=== PATIENT | female | born 1980 | race Two or more races ===

== ENCOUNTER 2024-08-27 12:05 | Inpatient (IN) | payer MEDICAID, OTHER ==
[~2024-08-27] VITALS: Ht 154.9 cm; Wt 69.3 kg
--- NOTE | 2024-08-27 12:43 | ED.PDOC ---
Back pain HPI HPI Comments 44 y/o F, RUTH, presents to the ED for CC of back pain. Ems reports, patient is coming from home where she c/o lower lumbar back pain onset, x3days. Patient relays, that she heard a "pop" today (08/27/24) and has since been unable to ambulate. In route to the emergency department, patient was given 1 g of IV Tylenol with no relief of symptoms. Patient denies trauma, injury, fall, or lifting. No other symptoms or modifying factors present at this time. Chief Complaint: Back Pain Time Seen by MD: 12:35 Primary Care Provider: UNKNOWN Reviewed Notes: Nurses Notes, Web Site Project Manager Notes, Medications, Allergies Allergies: Coded Allergies: NO KNOWN ALLERGIES (Unverified , 08/27/24) Information Source: Patient, Emergency Med Personnel Mode of Arrival: EMS Timing: Days Duration: Since onset Location of Back pain: (B) Lumbar Severity: Moderate Prehospital treatment: Pain Meds Onset: Spontaneous History of: None Modifying Factors: Nothing Associated signs and symptoms: None Past Medical History PAST MEDICAL HISTORY: Denies Surgical History: Denies all surgeries [employer]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 Family History Family History: Unknown Social History Smoker: Non-Smoker Alcohol: Denies ETOH Use Drugs: Denies Drug Use Lives In: Home Constitutional: denies: chills, diaphoresis, fatigue, fever, malaise, sweats, weakness, others EENTM: denies: blurred vision, double vision, ear bleeding, ear discharge, ear drainage, ear pain, ear ringing, eye pain, eye redness, hearing loss, mouth pain, mouth swelling, nasal discharge, nose bleeding, nose congestion, nose pain, photophobia, tearing, throat pain, throat swelling, voice changes, others Respiratory: denies: cough, hemoptysis, orthopnea, SOB at rest, shortness of breath, SOB with excertion, stridor, wheezing, others Cardiovascular: denies: chest pain, dizzy spells, diaphoresis, Dyspnea on exertion, edema, irregular heart beat, left arm pain, lightheadedness, palpitations, PND, syncope, others Gastrointestinal: denies: abdomen distended, abdominal pain, blood streaked bowels, constipated, diarrhea, dysphagia, difficulty swallowing, hematemesis, melena, nausea, poor appetite, poor fluid intake, rectal bleeding, rectal pain, vomiting, others Genitourinary: denies: abnormal vagina bleeding, burning, dyspareunia, dysuria, flank pain, frequency, hematuria, incontinence, pain, , vagina discharge, urgency, others Neurological: denies: dizziness, fainting, headache, left sided numbness, left sided weakness, numbness, paresthesia, pre-existing deficit, right sided numbness, right sided weakness, seizure, speech problems, tingling, tremors, weakness, others Musculoskeletal: reports: back pain; denies: gout, joint pain, joint swelling, muscle pain, muscle stiffness, neck pain, others Integumetry: denies: bruises, change in color, change in hair/nails, dryness, laceration, lesions, lumps, rash, wounds, others Allergic/Immunocompromised: denies: Difficulty Healing, Frequent Infections, Hives, Itching, others Hematologic/Lymphatic: denies: anemia, blood clots, easy bleeding, easy bruising, swollen glands, others Endocrine: denies: excessive hunger, excessive sweating, excessive thirst, excessive urination, flushing, intolerance to cold, intolerance to heat, unexplained weight gain, unexplained weight loss, others Psychiatric: denies: anxiety, bipolar disorder, depression, hopeless, panic disorder, schizophrenia, sleepless, suicidal, others All Other Systems: Reviewed and Negative Physical Exam General Appearance: No Apparent Distress, Normal HEENT: Normal ENT Inspection, Pharynx Normal Neck: Full Range of Motion, Non-Tender, Normal, Normal Inspection Respiratory: Chest Non-Tender, Lungs Clear, No Accessory Muscle Use, No Respiratory Distress, Normal Breath Sounds Cardiovascular: No Edema, No Murmur, No Gallop, Normal Peripheral Pulses, Regular Rate/Rhythm Breast Exam: Deferred Gastrointestinal: No Organomegaly, Non Tender, No Pulsatile Mass, Normal Bowel Sounds, Soft Genitalia: Deferred Pelvic: Deferred Rectal: Deferred Extremities: No calf tenderness, Normal capillary refill, Normal inspection, Normal range of motion, Non-tender, No pedal edema Musculoskeletal : Apperance: Normal Neurologic: Alert, java tech lead II-XII nml as Tested, No Motor Deficits, Normal Affect, Normal Mood, No Sensory Deficits Cerebellar Function: Normal Reflexes: Normal Skin: Dry, Normal Color, Warm Lymphatic: No Adenopathy Was a procedure done? Was a procedure done?: No Back Pain Differential Dx Differential Diagnosis: Musculoskeletal Pain, Strain, Urinary Obstruction, Urolithiasis X-Ray, Labs, Meds, VS Vital Signs Date Time Temp Pulse Resp B/P (MAP) Pulse Ox O2 Delivery O2 Flow Rate FiO2 08/27/24 12:12 97.6 84 17 145/82 (103) 98 97.6 Lab Test 08/27/24 16:19 08/27/24 13:34 Range/Units Urine Color Light-yellow Yellow Urine Clarity Clear Clear Urine pH 6.5 5.0-9.0 Urine Specific [place] 1.014 1.001-1.035 Urine Protein Negative Negative Urine Ketones Negative Negative Urine Blood 3+ H Negative /uL Urine Nitrite Negative Negative Urine Bilirubin Negative Negative Urine Urobilinogen Normal Negative mg/dL Urine Leukocyte Esterase Negative Negative /uL Urine RBC 6 0 - 4 /hpf Urine Microscopic WBC 1 0-5 /HPF Urine Squamous Epithelial Cells Few <5 /hpf Urine Bacteria None seen None Seen /hpf Urine Glucose Normal Normal mg/dL White Blood Count 6.5 4.4-10.8 10^3/uL Red Blood Count 4.74 4.0-5.20 10^6/uL Hemoglobin 14.4 12.2-16.2 g/dL Hematocrit 42.2 36.0-46.0 % Mean Corpuscular Volume 88.9 80.0-100.0 fL Mean Corpuscular Hemoglobin 30.4 28.0-32.0 pg Mean Corpuscular Hemoglobin Concent 34.2 32.0-36.0 g/dL Red Cell Distribution Width 13.8 11.8-14.3 % Platelet Count 269 140-450 10^3/uL Mean Platelet Volume 7.6 6.9-10.8 fL Neutrophils (%) (Auto) 67.9 37.0-80.0 % Lymphocytes (%) (Auto) 28.0 10.0-50.0 % Monocytes (%) (Auto) 3.4 0.0-12.0 % Eosinophils (%) (Auto) 0.4 0.0-7.0 % Basophils (%) (Auto) 0.3 0.0-2.0 % Neutrophils # (Auto) 4.4 1.6-8.6 10 ^3/uL Lymphocytes # (Auto) 1.8 0.4-5.4 10 ^3/uL Monocytes # (Auto) 0.2 0-1.3 10 ^3/uL Eosinophils # (Auto) 0 0-0.8 10 ^3/uL Basophils # (Auto) 0 0-0.2 10 ^3/uL Nucleated Red Blood Cells 0.2 % Sodium Level 138 136-145 mmol/L Potassium Level 3.8 3.5-5.1 mmol/L Chloride Level 106 98-107 mmol/L Carbon Dioxide Level 23 20-31 mmol/L Anion Gap 9 5-15 Blood Urea Nitrogen 13 9-23 mg/dL Creatinine 0.68 0.550-1.02 mg/dL Glomerular Filtration Rate Calc 109 >90 mL/min BUN/Creatinine Ratio 19.1 10.0-20.0 Serum Glucose 108 H 74-106 mg/dL Calcium Level 9.3 8.7-10.4 mg/dL Current Medications Medications (Trade) Dose Ordered Sig/Jim Route Start Time Stop Time Status Last Admin Cyclobenzaprine HCl (Flexeril Tablet) 10 mg ONCE ONCE PO 08/27/24 13:15 08/27/24 13:16 DC 08/27/24 16:44 Acetaminophen/ Hydrocodone Bitart ([place] 5/325MG Tab) 1 tab ONCE ONCE PO 08/27/24 13:15 08/27/24 13:16 DC 08/27/24 16:44 [place] [address] Ph: [phone] DIAGNOSTIC IMAGING Diagnostic Imaging Report : [id number] Signed PATIENT: CHRISTIANO SALMERONCCT: [id number] UNIT: [id number] : 1980 LOC: ER ROOM / BED: / AGE / SEX: 44 / F ADM STATUS: REG ER SERVICE 1303 ORDERING PHYSICIAN: SOL MICHAELS MD PROCEDURE(s): LUMB2 - LUMBAR SPINE 3 VIEW REASON: lower back pain ORDER NUMBER(s): [id number], ACCESSION NUMBER(s): [id number] INDICATION: lower back pain COMPARISON: None TECHNIQUE: 3 views of the lumbar spine were obtained. FINDINGS: The lumbar vertebral alignment is normal. The intervertebral disc spaces are well-maintained. No significant facet arthropathy is noted. No acute fracture, vertebral compression deformity or aggressive osseous lesions. The paravertebral soft tissues are grossly unremarkable. IMPRESSION: No acute fracture. ATED BY: OBDULIA FREITAS MD DICTATED DATE/TIME: 08/27/241343 SIGNED BY: OBDULIA FREITAS MD SIGNED DATE/TIME: 08/27/241343 CC: Time of 1ST Reevaluation: 13:05 Reevaluation 1ST: Unchanged Patient Education/Counseling: Diagnosis, Treatment Family Education/Counseling: No Family Present SEPSIS Sepsis Screen Date sepsis recognized/suspect: Aug 27, 2024 Time Sepsis recognized/suspect: 1211 Recent Procedure: No On Antibiotic Therapy: No Respiratory Rate >20: No Heart Rate >90: No Temp<36 C (96.8 F) or >38.3 C: No SBP <90 or MAP <65 mmHG: No New Acute Mental Status Change: No Is the patient on CPAP, BIPAP,: No Physician Orders Lumbar Spine 3 View (08/27/24 13:03) Vital Signs Date Time Temp Pulse Resp B/P (MAP) Pulse Ox O2 Delivery O2 Flow Rate FiO2 08/27/24 12:12 97.6 84 17 145/82 (103) 98 97.6 Laboratory Tests Test 08/27/24 13:34 White Blood Count 6.5 10^3/uL (4.4-10.8) Medications Medications Dose Ordered Sig/Jim Route Start Time Stop Time Status Last Admin Dose Admin Acetaminophen/ Hydrocodone Bitart 1 tab ONCE ONCE PO 08/27/24 13:15 08/27/24 13:16 DC 08/27/24 16:44 Cyclobenzaprine HCl 10 mg ONCE ONCE PO 08/27/24 13:15 08/27/24 13:16 DC 08/27/24 16:44 Departure 1 Departure Time of Disposition: 17:05 (Patient with severe intractable lumbar pain and inability to ambulate. X-ray is benign. We will admit patient for further workup and expert consultation) Impression: Primary Impression: Lower back pain Qualified Codes: M54.42 - Lumbago with sciatica, left side; M54.41 - Lumbago with sciatica, right side Additional Impression: Unable to ambulate Disposition: ADMITTED INPATIENT Admit to: Med Surg Condition: Serious Critical Care Note Critical Care Time?: Yes Critical care comment: Intractable back pain Authorized and Performed by: Sol Michaels MD Total critical care time: Approximately 37 minutes Due to a high probability of clinically significant, life threatening deterioration, the patient required my highest level of preparedness to intervene emergently and I personally spent this critical care time directly and personally managing the patient. This critical care time included obtaining a history; examining the patient; pulse oximetry; ordering and review of studies; arranging urgent treatment with development of a management plan; evaluation of patient's response to treatment; frequent reassessment; and, discussions with other providers. This critical care time was performed to assess and manage the high probability of imminent, life-threatening deterioration that could result in multi-organ failure. It was exclusive of separately billable procedures and treating other p atients and teaching time. Please see my other sections and the rest of the note for further information on patient assessment and treatment. Stability Stability form required: No Heart Score Heart Score: Heart Score Response (Comments) Value History N/A 0 EKG N/A 0 Age N/A 0 Risk Factors N/A 0 Troponin N/A 0 Total 0 I personally scribed for SOL MICHAELS MD ([email or web address]) on 08/27/24 at 12:43. Electronically submitted by Shawna Chapa ([email or web address]). I personally scribed for SOL MICHAELS MD ([email or web address]) on 08/27/24 at 14:47. Electronically submitted by Shawna Chapa ([email or web address]). SOL MICHAELS MD Aug 27, 2024 12:43
--- NOTE | 2024-08-27 13:46 | DVH ---
INDICATION: lower back pain COMPARISON: None TECHNIQUE: 3 views of the lumbar spine were obtained. FINDINGS: The lumbar vertebral alignment is normal. The intervertebral disc spaces are well-maintained. No significant facet arthropathy is noted. No acute fracture, vertebral compression deformity or aggressive osseous lesions. The paravertebral soft tissues are grossly unremarkable. IMPRESSION: No acute fracture.
[2024-08-27 13:48] LABS: Hematocrit 42.2 % (36.0-46.0); Hemoglobin 14.4 g/dL (12.2-16.2); Mean Corpuscular Hemoglobin 30.4 pg (28.0-32.0); Mean Corpuscular Volume 88.9 fL (80.0-100.0); Nucleated Red Blood Cells % 0.2 %
[2024-08-27 13:56] LABS: Chloride 106 mmol/L (98-107); Potassium 3.8 mmol/L (3.5-5.1); Sodium 138 mmol/L (136-145)
[2024-08-27 13:57] LABS: Anion Gap 9 (5-15); Carbon Dioxide 23 mmol/L (20-31)
[2024-08-27 13:58] LABS: Calcium 9.3 mg/dL (8.7-10.4)
[2024-08-27 14:02] LABS: BUN/Creatinine Ratio 19.1 (10.0-20.0); Blood Urea Nitrogen 13 mg/dL (9-23)
[2024-08-27 14:05] LABS: Glucose 108 mg/dL (74-106)
[2024-08-27 16:33] LABS: Urine Protein, UAD Negative (Negative)
[2024-08-27] MEDS: HYDROcodone-ACET 5/325MG TAB PO ONE (16:44)
[2024-08-27] MEDS: CYCLOBENZAPRINE HCL 10 MG TAB PO ONE (16:44)
[2024-08-27] MEDS: SODIUM CHLORIDE 0.9% 1,000 ML IV ONE (18:29)
[2024-08-27] MEDS: ONDANSETRON HCL 4 MG/2 ML VIAL IV ONE (18:30)
[2024-08-27] MEDS: MORPHINE SULFATE 4 MG/ML SYR/VIAL IV ONE (18:31)
[2024-08-27] MEDS ORDERED: ONDANSETRON HCL 4 MG/2 ML VIAL IV PRN (19:45)
[2024-08-27] MEDS ORDERED: ACETAMINOPHEN 325 MG TAB PO PRN (19:45)
[2024-08-27] MEDS ORDERED: MORPHINE SULFATE INJ 2 MG/ml SYRG IV PRN (19:45)
[2024-08-27] MEDS ORDERED: LIDOCAINE 5% TOPICAL PATCH TOP ONE (19:45)
[2024-08-27] MEDS ORDERED: HYDROcodone-ACET 5/325MG TAB PO PRN (19:45)
[2024-08-27] MEDS: LIDOCAINE 5% TOPICAL PATCH TOP SCH (20:00)
[2024-08-27] MEDS ORDERED: TEMAZEPAM 15 MG CAP PO PRN (22:00)
--- NOTE | 2024-08-27 22:16 | DVHHP2 ---
History of Present Illness Reason for Visit: Lower back pain History of Present Illness 44-year-old female presents for evaluation of lower back pain. The patient reports a three day history of lower back pain. She states the pain started after she open her refrigerator door and turned. Denies any trauma to the area no falls. Patient states having difficulty ambulating due to the pain. Denies lower extremity numbness or tingling sensation. Past Medical History Denies Past Surgical History Denies Family History Noncontributory Smoke: No ALCOHOL: none Drugs: None Lives: with Family Review of Systems Review of Systems Review of systems are currently negative otherwise addressed in HPI. Allergies: Coded Allergies: NO KNOWN ALLERGIES (Unverified , 08/27/24) Medications Current Medications Medications Dose Ordered Sig/Jim Route Start Time Stop Time Status Last Admin Dose Admin Cyclobenzaprine HCl 5 mg Q8HPRN PRN PO 08/27/24 19:45 Lidocaine 1 patch Q24H TOP 08/27/24 20:00 Acetaminophen/ Hydrocodone Bitart 1 tab Q4HP PRN PO 08/27/24 19:45 Temazepam 15 mg QHSP PRN PO 08/27/24 22:00 Ondansetron HCl 4 mg Q4HP PRN IV 08/27/24 19:45 Acetaminophen 650 mg Q6HP PRN PO 08/27/24 19:45 Morphine Sulfate 2 mg Q6HPRN PRN IV 08/27/24 19:45 Exam Vital Signs Vital Signs Date Time Temp Pulse Resp B/P (MAP) Pulse Ox O2 Delivery O2 Flow Rate FiO2 08/27/24 20:00 74 21 118/66 (83) 97 08/27/24 18:12 98.7 98.7 08/27/24 18:12 Room Air* 0 21 Exam Gen: 46-year-old female in mild distress Skin: Warm, dry, normal color and texture, no rash. HEENT: Normocephalic atraumatic, mucous membranes moist and pink. Neck: Cervical and supraclavicular nodes normal without enlargement, trachea is midline, thyroid gland is normal without masses. Pulmonary: Clear to auscultation and percussion bilaterally. Cardiac: Regular rate and rhythm. No murmur Abdomen: Soft, nontender, nondistended, bowel sounds present all 4 quadrants, no guarding, no rigidity, no organomegaly. Extremities: No cyanosis, clubbing, no edema Neuro: Cranial nerves II through XII grossly intact, normal affect and speech, no focal motor deficits. Labs/Xrays ORDERING PHYSICIAN: SOL ALEXANDER MD PROCEDURE(s): LUMB2 - LUMBAR SPINE 3 VIEW REASON: lower back pain ORDER NUMBER(s): [id number], ACCESSION NUMBER(s): [id number] INDICATION: lower back pain COMPARISON: None TECHNIQUE: 3 views of the lumbar spine were obtained. FINDINGS: The lumbar vertebral alignment is normal. The intervertebral disc spaces are well-maintained. No significant facet arthropathy is noted. No acute fracture, vertebral compression deformity or aggressive osseous lesions. The paravertebral soft tissues are grossly unremarkable. IMPRESSION: No acute fracture. Labs Test 08/27/24 16:19 08/27/24 13:34 Range/Units Urine Color Light-yellow Yellow Urine Clarity Clear Clear Urine pH 6.5 5.0-9.0 Urine Specific [place] 1.014 1.001-1.035 Urine Protein Negative Negative Urine Ketones Negative Negative Urine Blood 3+ H Negative /uL Urine Nitrite Negative Negative Urine Bilirubin Negative Negative Urine Urobilinogen Normal Negative mg/dL Urine Leukocyte Esterase Negative Negative /uL Urine RBC 6 0 - 4 /hpf Urine Microscopic WBC 1 0-5 /HPF Urine Squamous Epithelial Cells Few <5 /hpf Urine Bacteria None seen None Seen /hpf Urine Glucose Normal Normal mg/dL White Blood Count 6.5 4.4-10.8 10^3/uL Red Blood Count 4.74 4.0-5.20 10^6/uL Hemoglobin 14.4 12.2-16.2 g/dL Hematocrit 42.2 36.0-46.0 % Mean Corpuscular Volume 88.9 80.0-100.0 fL Mean Corpuscular Hemoglobin 30.4 28.0-32.0 pg Mean Corpuscular Hemoglobin Concent 34.2 32.0-36.0 g/dL Red Cell Distribution Width 13.8 11.8-14.3 % Platelet Count 269 140-450 10^3/uL Mean Platelet Volume 7.6 6.9-10.8 fL Neutrophils (%) (Auto) 67.9 37.0-80.0 % Lymphocytes (%) (Auto) 28.0 10.0-50.0 % Monocytes (%) (Auto) 3.4 0.0-12.0 % Eosinophils (%) (Auto) 0.4 0.0-7.0 % Basophils (%) (Auto) 0.3 0.0-2.0 % Neutrophils # (Auto) 4.4 1.6-8.6 10 ^3/uL Lymphocytes # (Auto) 1.8 0.4-5.4 10 ^3/uL Monocytes # (Auto) 0.2 0-1.3 10 ^3/uL Eosinophils # (Auto) 0 0-0.8 10 ^3/uL Basophils # (Auto) 0 0-0.2 10 ^3/uL Nucleated Red Blood Cells 0.2 % Sodium Level 138 136-145 mmol/L Potassium Level 3.8 3.5-5.1 mmol/L Chloride Level 106 98-107 mmol/L Carbon Dioxide Level 23 20-31 mmol/L Anion Gap 9 5-15 Blood Urea Nitrogen 13 9-23 mg/dL Creatinine 0.68 0.550-1.02 mg/dL Glomerular Filtration Rate Calc 109 >90 mL/min BUN/Creatinine Ratio 19.1 10.0-20.0 Serum Glucose 108 H 74-106 mg/dL Calcium Level 9.3 8.7-10.4 mg/dL SEPSIS Sepsis Screen Date sepsis recognized/suspect: Aug 27, 2024 Time Sepsis recognized/suspect: 1811 Recent Procedure: No On Antibiotic Therapy: No Respiratory Rate >20: No Heart Rate >90: No Temp<36 C (96.8 F) or >38.3 C: No SBP <90 or MAP <65 mmHG: No New Acute Mental Status Change: No Is the patient on CPAP, BIPAP,: No Physician Orders Lumbar Spine Wo Contrast (08/27/24 19:31) Cyclobenzaprine Tablet (Flexeril Tablet) (08/27/24 19:45) Admit (08/27/24 19:31) Hydrocodone-Acet 5/325mg Tab ([place] (08/27/24 19:45) Temazepam (Restoril) (08/27/24 22:00) Ondansetron Hcl (Zofran) (08/27/24 19:45) Condition: Stable (08/27/24 19:31) Acetaminophen Tablet (Tylenol Tablet) (08/27/24 19:45) Bedrest With Bathroom Privileg (08/27/24 19:31) Morphine Sulfate Injection (08/27/24 19:45) Regular Diet (08/28/24 Breakfast) Lidocaine 5% Topical Patch (Lidoderm 5% (08/27/24 20:00) Vital Signs Date Time Temp Pulse Resp B/P (MAP) Pulse Ox O2 Delivery O2 Flow Rate FiO2 08/27/24 20:00 74 21 118/66 (83) 97 08/27/24 18:31 73 12 120/69 08/27/24 18:12 98.7 73 12 120/69 (86) 98 98.7 08/27/24 18:12 Room Air* 0 21 Laboratory Tests Test 08/27/24 13:34 White Blood Count 6.5 10^3/uL (4.4-10.8) Medications Medications Dose Ordered Sig/Jim Route Start Time Stop Time Status Last Admin Dose Admin Acetaminophen/ Hydrocodone Bitart 1 tab ONCE ONCE PO 08/27/24 13:15 08/27/24 13:16 DC 08/27/24 16:44 1 TAB Cyclobenzaprine HCl 10 mg ONCE ONCE PO 08/27/24 13:15 08/27/24 13:16 DC 08/27/24 16:44 10 MG Morphine Sulfate 4 mg ONCE ONCE IV 08/27/24 17:15 08/27/24 17:57 DC 08/27/24 18:31 4 MG Ondansetron HCl 4 mg ONCE ONCE IV 08/27/24 17:15 08/27/24 17:58 DC 08/27/24 18:30 4 MG Sodium Chloride 1,000 ml @ 1,000 mls/hr Q1H ONCE IV 08/27/24 17:15 08/27/24 18:14 DC 08/27/24 18:29 1,000 MLS/HR Assessment/Plan Assessment/Plan Assessment Lower back pain Plan Admit the patient to [facility] to the hospitalist Pain management Lumbar MRI pending Continue treatment per orders. Plan discussed with: Patient My Orders Orders - RICKY RAMIREZ AGACNP Procedure Category Date Status Time Lumbar Spine Wo MRI 08/27/24 Logged Contrast 19:31 Cyclobenzaprine PHA 08/27/24 In Process Tablet (Flexeril 19:45 Admit ADMIT 08/27/24 Transmitted 19:31 Hydrocodone-Acet PHA 08/27/24 In Process 5/325mg Tab ([place] 19:45 Temazepam (Restoril) PHA 08/27/24 In Process 22:00 Ondansetron Hcl PHA 08/27/24 In Process (Zofran) 19:45 Condition: Stable KELBY 08/27/24 In Process 19:31 Acetaminophen Tablet PHA 08/27/24 In Process (Tylenol Tablet) 19:45 Bedrest With Bathroom KELBY 08/27/24 In Process Privileg 19:31 Morphine Sulfate PHA 08/27/24 In Process Injection 19:45 Regular Diet DIET 08/28/24 Transmitted Breakfast Lidocaine 5% Topical PHA 08/27/24 In Process Patch (Lidoderm 5% 20:00 Date of Service: Aug 27, 2024 Billing Provider: RICKY RAMIREZ Common Visit Codes: [id number] INP/OBS CARE (MOD) RICKY RAMIREZ Aug 27, 2024 22:16
[2024-08-28] VITALS (7 sets, daily range): BP systolic 93–128; BP diastolic 63–84; PULSE 67–78; RESP 15–20; TEMP 97.6–98.6; O2SAT 97–99
[2024-08-28] MEDS: CYCLOBENZAPRINE HCL 10 MG TAB PO PRN (08:39)
--- NOTE | 2024-08-28 11:33 | DVH ---
CLINICAL INFORMATION: 44 years old, Female; lower back pain. TECHNIQUE: Multisequence multiplanar MRI images of the lumbar spine were obtained without contrast. COMPARISON: Radiographs dated 08/27/2024. INTERPRETATION: Straightening of the normal lumbar lordosis. No significant spondylolisthesis. Vert ebral body heights are maintained. Posterior elements are intact. No focal suspicious marrow signa l abnormality. Visualized spinal cord and cauda equina are within normal limits. The conus medullar is is appropriate in signal at the L1 level. Paraspinal soft tissues are unremarkable. L1-L2: No significant disc/facet abnormality. No significant spinal canal or neural foraminal stenos is. L2-L3: No significant disc/facet abnormality. No significant spinal canal or neural foraminal stenos is. L3-L4: Disc desiccation. No significant spinal canal stenosis or neural foraminal stenosis. Small bi lateral facet joint effusions. L4-L5: Disc desiccation. Small annular fissure. Minimal disc bulge without significant spinal canal stenosis. Facet hypertrophy with mild left neural foraminal stenosis. Small bilateral facet joint eff usions. L5-S1: Disc desiccation with moderate disc space narrowing. Mild disc bulge mildly flattening the ve ntral aspect of the thecal sac. Small annular fissure. Facet hypertrophy with moderate bilateral neur al foraminal stenoses. IMPRESSION: 1. Degenerative disc disease and facet disease in the lumbar spine with associated neural foraminal s tenoses as described above. No significant spinal canal stenosis. 2. Straightening of the normal lumbar lordosis without significant spondylolisthesis. 3. Additional findings as described above.
--- NOTE | 2024-08-28 13:39 | DVHPN2 ---
Reviewed: Care Plan, H&P, Labs, Medications, Previous Orders, Radiology Changes from previous H/P or p: No Changes Objective Vitals Vital Signs Date Time Temp Pulse Resp B/P (MAP) Pulse Ox O2 Delivery O2 Flow Rate FiO2 08/28/24 12:36 98.4 68 16 120/80 (93) 97 98.4 08/28/24 07:30 Room Air* 0 21 Intake/Output Intake and Output 08/28/24 07:00 Intake Total 891 ml Balance 891 ml Intake Oral 891 ml # Voids 4 Medications Current Medications Medications Dose Ordered Sig/Jim Route Start Time Stop Time Status Last Admin Dose Admin Cyclobenzaprine HCl 5 mg Q8HPRN PRN PO 08/27/24 19:45 08/28/24 08:39 5 MG Lidocaine 1 patch Q24H TOP 08/27/24 20:00 Acetaminophen/ Hydrocodone Bitart 1 tab Q4HP PRN PO 08/27/24 19:45 Temazepam 15 mg QHSP PRN PO 08/27/24 22:00 Ondansetron HCl 4 mg Q4HP PRN IV 08/27/24 19:45 Acetaminophen 650 mg Q6HP PRN PO 08/27/24 19:45 Morphine Sulfate 2 mg Q6HPRN PRN IV 08/27/24 19:45 Laboratory Results Laboratory Tests 08/27/24 13:34 Chemistry Test 08/27/24 13:34 Calcium Level 9.3 mg/dL (8.7-10.4) Urinalysis Test 08/27/24 16:19 Urine Color Light-yellow (Yellow) Urine Clarity Clear (Clear) Urine pH 6.5 (5.0-9.0) Urine Specific [place] 1.014 (1.001-1.035) Urine Protein Negative (Negative) Urine Ketones Negative (Negative) Urine Blood 3+ /uL (Negative) H Urine Nitrite Negative (Negative) Urine Bilirubin Negative (Negative) Urine Urobilinogen Normal mg/dL (Negative) Urine Leukocyte Esterase Negative /uL (Negative) Urine RBC 6 /hpf (0 - 4) Urine Microscopic WBC 1 /HPF (0-5) Urine Squamous Epithelial Cells Few /hpf (<5) Urine Bacteria None seen /hpf (None Seen) Urine Glucose Normal mg/dL (Normal) Labs and/or images reviewed: Labs reviewed by me, Image(s) reviewed by me Assessment/Plan Assessment/Plan Acute lower back pain Morphine [place] lidocaine patch MRI LS spine shows degenerative changes, no fracture Acute Muscle strain Plan discussed with: Patient Date of Service: Aug 28, 2024 Billing Provider: ARIELLA CARDENAS MD Common Visit Codes: [id number] INP/OBS CARE(HIGH) ARIELLA CARDENAS MD Aug 28, 2024 13:39
[2024-08-29 01:00] VITALS: BP 109/67; PULSE 62; RESP 20; TEMP 98; O2SAT 96
[2024-08-29 05:00] VITALS: BP 109/75; PULSE 58; RESP 22; TEMP 97.9; O2SAT 96
[2024-08-29 08:05] VITALS: PULSE 82; RESP 16; O2SAT 98
[2024-08-29 09:00] VITALS: BP 114/77; PULSE 82; RESP 16; TEMP 98.1; O2SAT 98
[2024-08-29] MEDS ORDERED: METH-1182 PO (12:24)
[2024-08-29] MEDS ORDERED: HYDR-4902 PO (12:24)
--- NOTE | 2024-08-29 12:26 | DVHPN2 ---
Reviewed: Care Plan, H&P, Labs, Medications, Previous Orders, Radiology Changes from previous H/P or p: No Changes Objective Vitals Vital Signs Date Time Temp Pulse Resp B/P (MAP) Pulse Ox O2 Delivery O2 Flow Rate FiO2 08/29/24 09:00 98.1 82 16 114/77 (89) 98 98.1 08/29/24 08:05 Room Air* 0 21 Intake/Output Intake and Output 08/29/24 07:00 Intake Total 1250 ml Balance 1250 ml Intake Oral 1250 ml # Voids 6 # Bowel Movements 1 Medications Current Medications Medications Dose Ordered Sig/Jim Route Start Time Stop Time Status Last Admin Dose Admin Cyclobenzaprine HCl 5 mg Q8HPRN PRN PO 08/27/24 19:45 08/28/24 23:18 5 MG Lidocaine 1 patch Q24H TOP 08/27/24 20:00 Temazepam 15 mg QHSP PRN PO 08/27/24 22:00 Ondansetron HCl 4 mg Q4HP PRN IV 08/27/24 19:45 Acetaminophen 650 mg Q6HP PRN PO 08/27/24 19:45 Morphine Sulfate 2 mg Q6HPRN PRN IV 08/27/24 19:45 Tramadol HCl 50 mg Q6HP PRN PO 08/28/24 13:45 08/29/24 11:53 50 MG Laboratory Results Laboratory Tests 08/27/24 13:34 Urinalysis Test 08/27/24 16:19 Urine Color Light-yellow (Yellow) Urine Clarity Clear (Clear) Urine pH 6.5 (5.0-9.0) Urine Specific [place] 1.014 (1.001-1.035) Urine Protein Negative (Negative) Urine Ketones Negative (Negative) Urine Blood 3+ /uL (Negative) H Urine Nitrite Negative (Negative) Urine Bilirubin Negative (Negative) Urine Urobilinogen Normal mg/dL (Negative) Urine Leukocyte Esterase Negative /uL (Negative) Urine RBC 6 /hpf (0 - 4) Urine Microscopic WBC 1 /HPF (0-5) Urine Squamous Epithelial Cells Few /hpf (<5) Urine Bacteria None seen /hpf (None Seen) Urine Glucose Normal mg/dL (Normal) Labs and/or images reviewed: Labs reviewed by me, Image(s) reviewed by me Assessment/Plan Assessment/Plan Acute lower back pain Morphine [place] lidocaine patch MRI LS spine shows degenerative changes, no fracture Acute Muscle strain Plan discussed with: Patient My Orders Orders - ARIELLA CARDENAS MD Procedure Category Date Status Time Tramadol Hcl (Ultram) PHA 08/28/24 In Process 13:45 Date of Service: Aug 29, 2024 Billing Provider: ARIELLA CARDENAS MD Common Visit Codes: [id number] INP/OBS CARE(HIGH) ARIELLA CARDENAS MD Aug 29, 2024 12:26
--- NOTE | 2024-08-29 12:30 | DVHDS2 ---
Discharge Summary Date of Admission Aug 27, 2024 at 19:31 Date of Discharge: Aug 29, 2024 Admitting Diagnosis Acute exacerbation of chronic low back pain Labs/Diagnostic Data: Laboratory Results Test 08/27/24 16:19 08/27/24 13:34 Urine Color Light-yellow (Yellow) Urine Clarity Clear (Clear) Urine pH 6.5 (5.0-9.0) Urine Specific [place] 1.014 (1.001-1.035) Urine Protein Negative (Negative) Urine Ketones Negative (Negative) Urine Blood 3+ /uL (Negative) Urine Nitrite Negative (Negative) Urine Bilirubin Negative (Negative) Urine Urobilinogen Normal mg/dL (Negative) Urine Leukocyte Esterase Negative /uL (Negative) Urine RBC 6 /hpf (0 - 4) Urine Microscopic WBC 1 /HPF (0-5) Urine Squamous Epithelial Cells Few /hpf (<5) Urine Bacteria None seen /hpf (None Seen) Urine Glucose Normal mg/dL (Normal) White Blood Count 6.5 10^3/uL (4.4-10.8) Red Blood Count 4.74 10^6/uL (4.0-5.20) Hemoglobin 14.4 g/dL (12.2-16.2) Hematocrit 42.2 % (36.0-46.0) Mean Corpuscular Volume 88.9 fL (80.0-100.0) Mean Corpuscular Hemoglobin 30.4 pg (28.0-32.0) Mean Corpuscular Hemoglobin Concent 34.2 g/dL (32.0-36.0) Red Cell Distribution Width 13.8 % (11.8-14.3) Platelet Count 269 10^3/uL (140-450) Mean Platelet Volume 7.6 fL (6.9-10.8) Neutrophils (%) (Auto) 67.9 % (37.0-80.0) Lymphocytes (%) (Auto) 28.0 % (10.0-50.0) Monocytes (%) (Auto) 3.4 % (0.0-12.0) Eosinophils (%) (Auto) 0.4 % (0.0-7.0) Basophils (%) (Auto) 0.3 % (0.0-2.0) Neutrophils # (Auto) 4.4 10 ^3/uL (1.6-8.6) Lymphocytes # (Auto) 1.8 10 ^3/uL (0.4-5.4) Monocytes # (Auto) 0.2 10 ^3/uL (0-1.3) Eosinophils # (Auto) 0 10 ^3/uL (0-0.8) Basophils # (Auto) 0 10 ^3/uL (0-0.2) Nucleated Red Blood Cells 0.2 % Sodium Level 138 mmol/L (136-145) Potassium Level 3.8 mmol/L (3.5-5.1) Chloride Level 106 mmol/L (98-107) Carbon Dioxide Level 23 mmol/L (20-31) Anion Gap 9 (5-15) Blood Urea Nitrogen 13 mg/dL (9-23) Creatinine 0.68 mg/dL (0.550-1.02) Glomerular Filtration Rate Calc 109 mL/min (>90) BUN/Creatinine Ratio 19.1 (10.0-20.0) Serum Glucose 108 mg/dL (74-106) Calcium Level 9.3 mg/dL (8.7-10.4) Other Laboratory Tests 08/27/24 13:34 Brief Hx & Hospital Course: 44-year-old female came in for exacerbation of chronic low back history of recent injury. MRI LS spine showed DJD changes no fracture morphine [place] lidocaine patch and being discharged home on pain medications muscle relaxants. Patient was found walking in the hallway Consults/Reason for consult None Operations or Procedures CT LS spine MRI LS spine Condition at Discharge: Fair Final Diagnosis/Problems List Acute lower back pain Morphine [place] lidocaine patch MRI LS spine shows degenerative changes, no fracture Acute Muscle strain Discharge Disposition: Home Discharge Instruct/Medications Diet: Regular Activity: Light activity Follow Up/Referral: Follow up With your primary Dr Medications: [facility] Scheduled Methocarbamol (Methocarbamol), 750 MG PO TID Scheduled PRN Hydrocodone-Acetaminophen (Hydrocodone Bitartrate/AC 5-325 mg), 1 TAB PO QID PRN 35 (Time taken for discharge summary 35 mts) Discharge Statement: "Patient was advised to return to the ER or call 911 if any headaches, dizziness, shortness of breath, chest pain, abdominal pain, bleeding, fevers, or worsening of medical condition. Patient was counseled about treatment plan, medications, possible side effects, patientverbalized understanding. All questions were answered to the best of my ability. This discharge took greater then 30 minutes in planning, reviewing documentation, counseling the patient, and discussing with other team members." ASSESSMENT ASSESSMENT Hospital Course Improved Assessment Acute lower back pain Morphine [place] lidocaine patch MRI LS spine shows degenerative changes, no fracture Acute Muscle strain Date of Service: Aug 29, 2024 Billing Provider: ARIELLA CARDENAS MD Common Visit Codes: 59959-EMK/OBS DISCH DAY >30min ARIELLA CARDENAS MD Aug 29, 2024 12:29
[2024-08-29 12:37] VITALS: BP_SYST 125; BP_SYST 94; BP_DIAS 59; BP_DIAS 86; PULSE 84; PULSE 86; RESP 17; TEMP 97.8; TEMP 98.4; O2SAT 96; O2SAT 98
[2024-08-29 13:31] VITALS: BP 125/86; PULSE 84; RESP 17; TEMP 97.8; O2SAT 96
== END 2024-08-29 14:10 | disposition home or self-care (01) | DRG 351 ==
LOC: EDBD 12:05 → ER 12:05 → OVERFLOW 19:31 → WEST WING 19:33
PROVIDERS: ADMIT Family Medicine; ATTEND Family Medicine
DX: S39.012A Strain of muscle, fascia and tendon of lower back, initial encounter (principal); G89.29 Other chronic pain
CPT/HCPCS: 36415; 72100; 72148; 80048; 81001; 85025; 96361; 96374; 96375; 99291; G0378; J2405